=== PATIENT | female | born 1980 | race Caucasian/White ===

== ENCOUNTER 2021-09-15 12:40 | Emergency (ER) | payer OTHER, SELFPAY ==
--- NOTE | 2021-09-15 12:43 | ED.URI ---
HPI - URI/Sore Throat General Chief Complaint: Upper Respiratory Infection Stated Complaint: coughing tight chest chills Time Seen by Provider: 09/15/21 12:40 Source: patient and RN notes reviewed History of Present Illness HPI Narrative: Patient is a 40-year-old female who presents the urgent care with complaints of sinus pressure, mild cough, runny nose and postnasal drainage. Patient states that it started with head congestion on Saturday and she has not taken anything for her symptoms. Patient feels that when she lays down she has some chest tightness and wheezing. Denies of any shortness of breath or chest pain at this time. No other acute complaints. States that her has been ill but he is on the upside . Her had not been tested or treated for any illness. Patient states she did have contact with influenza last week at work. Denies any fevers. No other acute complaints. No acute distress noted. Patient aware of the plan of care. Some parts of this dictation were generated by voice recognition software and may contain typographical and/or grammatical inaccuracies. Related Data Home Medications Medication Instructions Recorded Confirmed atorvastatin 10 mg PO DAILY 09/15/21 09/15/21 buspirone 7.5 mg PO DAILY 09/15/21 09/15/21 citalopram 40 mg PO DAILY 09/15/21 09/15/21 ergocalciferol (vitamin D2) 09/15/21 fluticasone propionate INTRANASAL 09/15/21 ibuprofen 800 mg 09/15/21 loratadine 10 mg PO DAILY 09/15/21 09/15/21 omeprazole 40 mg PO DAILY 09/15/21 09/15/21 propranolol 09/15/21 Allergies Allergy/AdvReac Type Severity Reaction Status Date / Time milk Allergy Intermediate THROAT Verified 09/15/21 13:01 SWELLING codeine Allergy Unknown N/V Verified 09/15/21 13:01 egg Allergy Unknown Unknown Verified 09/15/21 13:01 influenza virus vaccine qs Allergy Unknown Verified 09/15/21 13:01 [id number] (36 mos, up) [From [employer] Quad] Review of Systems Review of Systems: CONSTITUTIONAL: Denies fever, chills, or sweats. EYES: Denies visual changes, redness, or discharge. ENT: Reports of rhinorrhea, sinus congestion, postnasal drainage CARDIOVASCULAR: Denies chest pain, palpitations, or edema. RESPIRATORY: Reports of cough with intermittent wheezes GASTROINTESTINAL: Denies abdominal pain, nausea, vomiting, or diarrhea. GENITOURINARY: Denies dysuria or hematuria. SKIN: Denies rash or itching. MUSCULOSKELETAL: Denies back pain, joint pain, or myalgia. NEUROLOGIC: Denies headache, numbness, or weakness. All other systems reviewed are negative, except as documented in HPI. [facility] Family History Family History (Updated 01/20/16 @ 23:19 by DOCTOR UNKNOWN) Mother Family history of diabetes mellitus in first degree relative Family history of emphysema Grandparent Diabetes mellitus Social History Social History Smoking status: Former smoker Smoking end date: 06/24/13 Alcohol intake: current Comments At the time of my signature, I reviewed and agree with the nursing past medical, surgical, social, and family history. There is no relevant family history pertinent to the patient complaint. Exam Narrative: GENERAL: This is a well-nourished, well-developed patient, in no apparent distress. HEAD: normocephalic, atraumatic. Frontal sinus tenderness EYES: PERRL. Sclera clear/white. Vision is grossly intact. EARS: External ears normal, auditory canals clear and without drainage, TMs normal without perforation. Hearing grossly intact. NOSE: External nose normal with no obvious nasal discharge, nares without redness, clear to yellow rhinorrhea. THROAT: Mucous membranes moist, posterior pharynx clear. Moderate postnasal drainage NECK: Neck supple CARDIOVASCULAR: Regular rate and rhythm without murmurs, gallops, or rubs. RESPIRATORY: Clear to auscultation. Breath sounds equal bilaterally. No wheezes, rales, or rhonchi. SKIN: warm, intact with no suspicious lesions or rash, good textu
[2021-09-15 12:50] VITALS: BP 133/83; PULSE 80; RESP 20; TEMP 36.8; O2SAT 99
== END 2021-09-15 13:20 | disposition home or self-care (01) ==
PROVIDERS: Emergency Provider Nurse Practitioner Family; PCP Nurse Practitioner Family
DX: J06.9 Acute upper respiratory infection, unspecified (principal); Z87.891 Personal history of nicotine dependence; E78.00 Pure hypercholesterolemia, unspecified; Z86.16 Personal history of COVID-19; K21.9 Gastro-esophageal reflux disease without esophagitis; F41.9 Anxiety disorder, unspecified; F32.A Depression, unspecified
CPT/HCPCS: 87804; 99213; G0463

== ENCOUNTER 2022-04-29 18:14 | Emergency (ER) | payer OTHER, SELFPAY ==
[2022-04-29 18:18] VITALS: BP 133/84; PULSE 74; RESP 20; TEMP 36.8; O2SAT 98
--- NOTE | 2022-04-29 18:44 | ED.ABDPAIN ---
HPI - Abdominal Pain General Chief Complaint: Abdominal Pain Stated Complaint: Abdominal Pain/Diarrhea Source: patient Mode of arrival: ambulatory Limitations: no limitations History of Present Illness HPI narrative: Patient presents for evaluation of abdominal bloating for the past 2 days. She also reports diarrhea with 5 episodes earlier today. She denies any blood or mucus in the stool. She denies any abdominal pain per se but states that it hurts under her ribs due to the abdominal bloating. She reports subjective fever, sore throat and nausea. She denies chills, vomiting, significant cough or SOB. No recent sick contacts to her knowledge. She had COVID last year. She has underlying IBS but states that she is currently having more bowel movements than normal. Related Data Home Medications Medication Instructions Recorded Confirmed atorvastatin 10 mg tablet 10 mg PO BID 09/15/21 04/29/22 buspirone 7.5 mg tablet 7.5 mg PO DAILY 09/15/21 04/29/22 citalopram 40 mg tablet 40 mg PO DAILY 09/15/21 04/29/22 ergocalciferol (vitamin D2) 1,250 1,250 mcg PO WEEKLY 09/15/21 04/29/22 mcg (50,000 unit) capsule fluticasone propionate 50 1 spray intranasal DAILY 09/15/21 04/29/22 mcg/actuation nasal spray,suspension ibuprofen 800 mg tablet 800 mg PO TID 09/15/21 04/29/22 loratadine 10 mg tablet 10 mg PO DAILY 09/15/21 04/29/22 omeprazole 40 mg capsule,delayed 40 mg PO DAILY 09/15/21 04/29/22 release propranolol 40 mg tablet 40 mg PO BID 09/15/21 04/29/22 Allergies Allergy/AdvReac Type Severity Reaction Status Date / Time milk Allergy Intermediate THROAT Verified 04/29/22 18:30 SWELLING codeine Allergy Unknown N/V Verified 04/29/22 18:30 egg Allergy Unknown Unknown Verified 04/29/22 18:30 influenza virus vaccine qs Allergy Unknown Verified 04/29/22 18:30 [id number] (36 mos, up) [From [employer] Quad] ranitidine Allergy Unknown Verified 04/29/22 18:30 Review of Systems Review of Systems: CONSTITUTIONAL: Reports subjective fever. Denies chills, or sweats. EYES: Denies visual changes, redness, or discharge. ENT: Denies rhinorrhea, congestion, sore throat, or otalgia. CARDIOVASCULAR: Denies chest pain, palpitations, or edema. RESPIRATORY: Denies cough or dyspnea. GASTROINTESTINAL: Reports abdominal bloating, nausea and diarrhea. Denies vomiting GENITOURINARY: Denies dysuria or hematuria. SKIN: Denies rash or itching. MUSCULOSKELETAL: Denies back pain, joint pain, or myalgia. NEUROLOGIC: Denies headache, numbness, dizziness, or weakness. PSYCHIATRIC: Denies anxiety or depression. [facility] Past Medical History Medical History (Updated 04/29/22 @ 19:30 by Javier Brandt, PERNELL, ) Depression GERD (gastroesophageal reflux disease) IBS (irritable bowel syndrome) Surgical History Surgical History No pertinent past surgical history Family History Family History Mother Family history of diabetes mellitus in first degree relative Family history of emphysema Grandparent Diabetes mellitus Social History Social History Smoking status: Current some day smoker Smoking end date: 06/24/13 Alcohol intake: current Alcohol use details: Drinks 1 day per week Substance use: former Additional living arrangements comments: Lives with significant other Gender identity (if verbalized by the patient): Female Sexual Orientation (if Verbalized by the Patient): Straight or Heterosexual Spiritual care concerns: No Exam Narrative: GENERAL: Well-appearing, well-nourished, and in no acute distress. HEAD: Normocephalic, atraumatic. EYES: PERRLA and EOMI. ENT: Nares clear, no rhinorrhea or epistaxis. Mucous membranes moist. Oropharynx without tonsillar hypertrophy exudate or other lesions. Bilateral TMs pearly mc nonbulg
== END 2022-04-29 19:27 | disposition short-term general hospital (02) ==
PROVIDERS: Emergency Provider Nurse Practitioner; PCP Nurse Practitioner Family
DX: R14.0 Abdominal distension (gaseous) (principal); R19.7 Diarrhea, unspecified; F17.210 Nicotine dependence, cigarettes, uncomplicated; Z79.1 Long term (current) use of non-steroidal anti-inflammatories (NSAID)
CPT/HCPCS: 87804; 99213; G0463